=== PATIENT | male | born 1990 | race American Indian/Alaskan Native ===

== ENCOUNTER 2017-09-04 11:07 | Emergency (ER) | payer OTHER ==
[2017-09-04 12:08] LABS: Bacteria,Urine 1+ /HPF (Negative); Bilirubin,Urine NEG (Negative); Blood,Urine SM (Negative); Color,Urine Yellow (Yellow); Mucus,Urine 3+ /HPF
[2017-09-04 12:16] LABS: Amphetamine Screen,Urine PRESUMPTIVE NEGATIVE; Benzodiazepines Screen,Urine PRESUMPTIVE NEGATIVE; Cocaine Screen,Urine PRESUMPTIVE NEGATIVE; Methadone Screen,Urine PRESUMPTIVE NEGATIVE; Opiate Screen,Urine PRESUMPTIVE NEGATIVE
[2017-09-04 12:54] LABS: Cannabinoid Screen,Urine PRESUMPTIVE POSITIVE
[2017-09-04 13:00] LABS: Basophils % (Auto) 0.8 % (0.0-1.8); Eosinophils # (Auto) 0.3 K/mm3 (0.0-0.4); Eosinophils % (Auto) 4.7 % (0.0-4.3); Hemoglobin 16.1 gm/dl (11.8-15.2); Lymphocytes # (Auto) 1.7 K/mm3 (1.2-5.4); Mean Corpuscular HGB Conc 35 % (32-34); Mean Corpuscular Hemoglobin 32 pg (28-32); Mean Corpuscular Volume 91 fl (84-94); Monocytes # (Auto) 0.5 K/mm3 (0.0-0.8); Monocytes % (Auto) 8.5 % (0.0-7.3); Platelet Count 238 K/mm3 (140-440); Red Blood Count 5.07 M/mm3 (3.65-5.03); Red Cell Distribution Width 12.8 % (13.2-15.2)
--- NOTE | 2017-09-04 13:03 | Emergency Department Report ---
ED Psych HPI - General Chief Complaint: Psych Stated Complaint: SUICIDAL THOUGHTS Time Seen by Provider: 09/04/17 12:48 Source: patient, police Mode of arrival: Ambulatory - History of Present Illness Initial Comments: This is a very pleasant 27-year-old male with history of PTSD and previous suicide attempt. Mr. Ray develop PTSD after he served 4 years in the including two tours in [place]. He is followed by the OR for psychiatric care. He called the OR crisis line to speak with his mental health counselor. Due to his suicidal ideation, police were contacted to transport him to the emergency room. He denies physical complaints. However, he has had acute severe depression. He came to the [place] area after 5 months in a behavioral FACILITY in [place]. He asked for early discharge from the facility in July to be with his family. He felt that he could be a financial support by working. However he feels that he is a burden to his family because he is yet to obtain income. He has been compliant with his psychiatric medications which include Wellbutrin , buspirone, prazosin, melatonin. MD Complaint: suicidal ideation, feels depressed -: days(s) (2) Associated Psychiatric Symptoms: depression, suicidal ideation History of same: Yes (history of PTSD) Quality: constant Improves With: other (marijuana) Context: significant life stressor Associated Symptoms: denies other symptoms Treatments Prior to Arrival: other (OR mental crisis line sent police to bring patient to ER) If Self Harm: admits thoughts of (no current plans to harm himself or others history of suicide attempt) - Related Data Allergies Allergy/AdvReac Type Severity Reaction Status Date / Time No Known Allergies Allergy Unverified 09/04/17 11:13 ED Review of Systems ROS: Stated complaint: SUICIDAL THOUGHTS Other details as noted in HPI Comment: All other systems reviewed and negative Constitutional: denies: fever, malaise Respiratory: denies: cough Cardiovascular: denies: chest pain ED Past Medical Hx - Past Medical History Previous Medical History?: Yes Hx Hypertension: Yes Hx Psychiatric Treatment: Yes (PTSD, depression, Suicidal thoughts) - Surgical History Past Surgical History?: Yes Additional Surgical History: Oral surgery - Social History Smoking Status: Current Every Day Smoker Substance Use Type: Alcohol, Marijuana, Prescribed ED Physical Exam - General Limitations: No Limitations General appearance: alert, in no apparent distress - Head Head exam: Present: atraumatic, normocephalic - Eye Eye exam: Present: normal appearance Pupils: Present: normal accommodation - ENT ENT exam: Present: normal exam, normal orophraynx, mucous membranes moist - Neck Neck exam: Present: normal inspection. Absent: meningismus - Respiratory Respiratory exam: Present: normal lung sounds bilaterally. Absent: respiratory distress, wheezes, rales, rhonchi - Cardiovascular Cardiovascular Exam: Present: regular rate, normal rhythm, normal heart sounds. Absent: bradycardia, tachycardia, irregular rhythm, systolic murmur, diastolic murmur, rubs, gallop - GI/Abdominal GI/Abdominal exam: Present: soft, normal bowel sounds. Absent: distended, tenderness, guarding, rebound, rigid - Rectal Rectal exam: Present: deferred - Extremities Exam Extremities exam: Present: normal inspection - Back Exam Back exam: Present: normal inspection - Neurological Exam Neurological exam: Present: alert, oriented X3 - Psychiatric Psychiatric exam: Present: depressed, flat affect, suicidal ideation. Absent: agitated, anxious, manic, homicidal ideation - Skin Skin exam: Present: warm, dry, intact, normal color. Absent: rash ED Course Vital Signs 09/04/17 09/04/17 09/04/17 11:14 13:09 13:13 Temperature 98 F 97.9 F Pulse Rate 95 H 77 Respiratory 18 16 Rate Blood Pressure 167/112 Blood Pressure 145/101 [Left] O2 Sat by Pulse 98 99 98 Oximetry ED Medical Decision Making - Lab Data Result diagrams: 09/04/17 12:32 09/04/17 12:32 Vital Signs - 24 hr 09/04/17 09/04/17 09/04/17 11:14 13:09 13:13 Temperature 98 F 97.9 F Pulse Rate 95 H 77 Respiratory 18 16 Rate Blood Pressure 167/112 Blood Pressure 145/101 [Left] O2 Sat by Pulse 98 99 98 Oximetry Laboratory Results - last 24 hr 09/04/17 09/04/17 09/04/17 11:26 11:26 12:32 WBC RBC Hgb Hct MCV MCH MCHC RDW Plt Count Lymph % (Auto) [place] % (Auto) Eos % (Auto) Baso % (Auto) Lymph # [place] # Eos # Baso # Seg Neutrophils % Seg Neutrophils # Sodium Potassium Chloride Carbon Dioxide Anion Gap BUN Creatinine Estimated GFR BUN/Creatinine Ratio Glucose Calcium Urine Color Yellow Urine Turbidity Clear Urine pH 5.0 Ur Specific [place] 1.034 H Urine Protein 30 mg/dl Urine Glucose (UA) Neg Urine Ketones Tr Urine Blood Sm Urine Nitrite Neg Urine Bilirubin Neg Urine Urobilinogen 4.0 Ur Leukocyte Esterase Neg Urine WBC (Auto) 1.0 Urine RBC (Auto) 2.0 Urine Bacteria (Auto) 1+ Urine Mucus 3+ Salicylates < 0.3 L Urine Opiates Screen Presumptive negative Urine Methadone Screen Presumptive negative Acetaminophen Ur Barbiturates Screen Presumptive negative Ur Phencyclidine Scrn Presumptive negative Ur Amphetamines Screen Presumptive negative U Benzodiazepines Scrn Presumptive negative Urine Cocaine Screen Presumptive negative U Marijuana (THC) Screen Presumptive positive Drugs of Abuse Note Disclamer Plasma/Serum Alcohol 09/04/17 09/04/17 09/04/17 12:32 12:32 12:32 WBC RBC Hgb Hct MCV MCH MCHC RDW Plt Count Lymph % (Auto) [place] % (Auto) Eos % (Auto) Baso % (Auto) Lymph # [place] # Eos # Baso # Seg Neutrophils % Seg Neutrophils # Sodium 135 L Potassium 3.9 Chloride 99.6 Carbon Dioxide 23 Anion Gap 16 BUN 21 H Creatinine 0.9 Estimated GFR > 60 BUN/Creatinine Ratio 23 Glucose 79 Calcium 9.5 Urine Color Urine Turbidity Urine pH Ur Specific [place] Urine Protein Urine Glucose (UA) Urine Ketones Urine Blood Urine Nitrite Urine Bilirubin Urine Urobilinogen Ur Leukocyte Esterase Urine WBC (Auto) Urine RBC (Auto) Urine Bacteria (Auto) Urine Mucus Salicylates Urine Opiates Screen Urine Methadone Screen Acetaminophen < 15.0 Ur Barbiturates Screen Ur Phencyclidine Scrn Ur Amphetamines Screen U Benzodiazepines Scrn Urine Cocaine Screen U Marijuana (THC) Screen Drugs of Abuse Note Plasma/Serum Alcohol < 0.01 09/04/17 12:32 WBC 5.5 RBC 5.07 H Hgb 16.1 H Hct 46.0 H MCV 91 MCH 32 MCHC 35 H RDW 12.8 L Plt Count 238 Lymph % (Auto) 31.0 [place] % (Auto) 8.5 H Eos % (Auto) 4.7 H Baso % (Auto) 0.8 Lymph # 1.7 [place] # 0.5 Eos # 0.3 Baso # 0.0 Seg Neutrophils % 55.0 Seg Neutrophils # 3.0 Sodium Potassium Chloride Carbon Dioxide Anion Gap BUN Creatinine Estimated GFR BUN/Creatinine Ratio Glucose Calcium Urine Color Urine Turbidity Urine pH Ur Specific [place] Urine Protein Urine Glucose (UA) Urine Ketones Urine Blood Urine Nitrite Urine Bilirubin Urine Urobilinogen Ur Leukocyte Esterase Urine WBC (Auto) Urine RBC (Auto) Urine Bacteria (Auto) Urine Mucus Salicylates Urine Opiates Screen Urine Methadone Screen Acetaminophen Ur Barbiturates Screen Ur Phencyclidine Scrn Ur Amphetamines Screen U Benzodiazepines Scrn Urine Cocaine Screen U Marijuana (THC) Screen Drugs of Abuse Note Plasma/Serum Alcohol - Medical Decision Making Mr. Ray was evaluated by our behavioral health specialist, [place] who recommended 1013 involuntary commitment. Patient is not able to contract for safety. He has persistent suicidal ideation and depression. Currently awaiting further psychiatric care and transfer as necessary. He is medically clear for psychiatric care. There is no medical condition which needs further stabilization. Critical care attestation.: If time is entered above; I have spent that time in minutes in the direct care of this critically ill patient, excluding procedure time. ED Disposition Clinical Impression: Depression, PTSD (post-traumatic stress disorder), Suicidal ideation Disposition: [id number] PSY HOSP/PSY UNIT Is pt being admited?: No Does the pt Need Aspirin: No Condition: Stable
[2017-09-04 13:13] LABS: BUN/Creatinine Ratio 23; Blood Urea Nitrogen 21 mg/dL (9-20); Calcium 9.5 mg/dL (8.4-10.2); Hemolysis Index 16
[2017-09-04] MEDS ORDERED: WELLBUTRIN PO SCH (23:45)
[2017-09-04] MEDS ORDERED: BUSPAR PO SCH (23:45)
[2017-09-05] MEDS: BUSPAR PO SCH ×3 (01:11→23:09)
[2017-09-05] MEDS: MINIPRESS PO SCH ×2 (01:11→23:09)
--- NOTE | 2017-09-05 13:16 | Consultation ---
History of Present Illness - Reason for Consult Reason for consult: SI - History of Present Psychiatric Illness CHIEF COMPLAINT IN PATIENTS WORDS: HISTORY OF PRESENT ILLNESS: This is a 27-year-old male with history of PTSD and MDD who presents secondary to recent expression of SI. Patient notes that he was recently hospitalized in [place] in July 2017. Upon discharge patient planned to follow up with the [facility]; however, he was simply taking his medications but did not engage in outpatient therapy. Upon noticing that his symptoms were worsening, patient contacted the crisis line and informed them about his ongoing symptoms[facility] place of residence and the police brought him into [facility]. PSYCHIATRIC REVIEW OF SYSTEMS: Substance: UDS + Cannabis Detoxification/Withdrawal: none noted Depression: endorses low moods Shala: no labile moods, not hyperverbal, no flight of ideas Psychosis: no AVH, no thought disorder noted, no paranoia/grandiosity/erotomania Anxiety/ OCD/ PTSD: avoidance, anxiety Suicidality: + SI Other Self-Injurious Behavior: none currently, no SIB noted recently Violent/ Aggressive Behavior: none noted CURRENT MEDICATIONS: Wellbutrin Buspar Vistaril Prazosin ALLERGIES: NKDA PAST PSYCHIATRIC HISTORY: Inpatient: Jul 2017 Outpatient: [facility] x 4 years Prior Suicide Attempts: did not disclose Prior Self-Injurious Behaviors: denies PAST PSYCHIATRIC MEDICATION TRIALS: SSRIs, alpha agonist MEDICAL HISTORY: Denies MENTAL STATUS EXAM: General Appearance: Dressed in hospital gown, no acute distress Sensorium/Consciousness: alert and responding to external stimuli Eye Contact: limited Attitude / Behavior: cooperative, but guarded Psychomotor & Musculoskeletal Activity: WNL Mood: fine Affect: constricted Speech / Language: normal Thought Processes: organized, logical, linear, goal directed Thought Content: + SI no plan, no HI Perception: no AVH Orientation: person, place, time, situation Judgment What would you do if you smelled smoke in a crowded movie theater?: fair Insight: fair Intelligence Vocabulary, general fund of knowledge, educational level: Average Capacity of ADLs: Independent STRENGTHS: PSYCHOSOCIAL AND ENVIRONMENTAL STRESSORS: ASSESSMENT: MDD Severe Recurrent PTSD PLAN OF CARE: - continue wellbutrin, prazosin, buspar as perscribed - add vistaril 25 mg po qid - continue 1013 - refer to inpatient psychiatric hospital Medications and Allergies Allergies Allergy/AdvReac Type Severity Reaction Status Date / Time No Known Allergies Allergy Verified 09/04/17 23:20 Home Medications Medication Instructions Recorded Confirmed Last Taken Type Acetaminophen [Tylenol] 325 mg PO Q6HR PRN 09/04/17 09/04/17 09/03/17 History Melatonin [Melatin] 3 mg PO QHS 09/04/17 09/04/17 09/03/17 History Prazosin HCl 3 mg PO QHS 09/04/17 09/04/17 09/03/17 History amLODIPine [Norvasc] 10 mg PO DAILY 09/04/17 09/04/17 09/03/17 History buPROPion [Wellbutrin] 300 mg PO BID 09/04/17 09/04/17 09/03/17 History busPIRone [Buspar] 10 mg PO BID 09/04/17 09/04/17 09/03/17 History Active Meds: Active Medications Bupropion HCl (Wellbutrin) 150 mg PO BID [facility] Stop: 09/08/17 23:44 Buspirone HCl (Buspar) 10 mg PO BID [facility] Last Admin: 09/05/17 01:11 Dose: 10 mg Prazosin HCl (Minipress) 3 mg PO QHS ELSIE Stop: 09/09/17 23:44 Last Admin: 09/05/17 01:11 Dose: 3 mg Mental Status Exam - Vital signs Last Vital Signs Temp 97.8 F 09/04/17 18:47 Pulse 71 09/04/17 18:47 Resp 16 09/04/17 18:47 BP 135/93 09/04/17 18:47 Pulse Ox 95 09/04/17 16:00 Results Result Diagrams: 09/04/17 12:32 09/04/17 12:32 Abnormal lab results 09/04/17 09/04/17 Range/Units 12:32 12:32 Sodium 135 L (137-145) mmol/L BUN 21 H (9-20) mg/dL Salicylates < 0.3 L (2.8-20.0) mg/dL All other labs normal.
[2017-09-05] MEDS: WELLBUTRIN PO SCH ×2 (17:40→23:10)
[2017-09-05] MEDS: VISTARIL PO SCH ×3 (18:33→23:10)
[2017-09-05] MEDS ORDERED: MINIPRESS PO SCH ×2 (22:00)
[2017-09-06] MEDS ORDERED: NORVASC ONE (09:49)
[2017-09-06] MEDS ORDERED: NORVASC PO ONE (09:57)
[2017-09-06 10:00] VITALS: BP 147/109
--- NOTE | 2017-09-06 10:50 | Progress Note ---
Subjective - Reason for Consult Consult date: 09/06/17 Reason for consult: Psychiatry Follow-up - Chief Complaint Chief complaint: "I need to follow up with outpatient services" This is a 27-year-old male with history of PTSD and MDD who presents secondary to recent expression of SI. Today the patient is calm and cooperative during the assessment. He stated that he will do better following up with outpatient psy services once discharged. He stated that he is "dealing with family stress" at this time (mother and sister has medical problems). He rate his depression 6/ 10, with 10 being the worse. He denies SI/HI's and AVH's. He denies any side effects of his medications. He stated that he smoke marijuana often to decrease his depression and anxiety. Mental Status Exam - Vital signs Last Vital Signs Temp 98.4 F 09/06/17 09:45 Pulse 81 09/06/17 10:00 Resp 14 09/06/17 09:45 BP 147/109 09/06/17 10:00 Pulse Ox 99 09/06/17 09:45 - Exam Narrative exam: MSE: Appearance: calm, cooperative Behavior: regular eye contact Speech: regular rate and tone Mood: "okay" withdrawn Affect: flat Thought Process: circumstantial Thought Content: denies SI/HI's and AVH's Motor Activity: ambulatory Cognition: A/O x3 Insight: fair Judgment: fair Assessment and Plan Impression: MDD. PTSD. Cannabis Use DO. Today the patient is calm and cooperative during the assessment. Recommendation/Plan: Continue 1013 with placement to [facility] today.
== END 2017-09-06 10:00 ==
LOC: ED 11:07 → EEVIPCON 11:07 → ED 09-06 10:00
DX: F32.9 Major depressive disorder, single episode, unspecified (principal); F43.10 Post-traumatic stress disorder, unspecified; F17.200 Nicotine dependence, unspecified, uncomplicated
CPT/HCPCS: 36415; 80048; 80307; 81001; 85025; 99283; G0480; 80320; Q0177